=== PATIENT | female | born 1975 | race Caucasian/White ===

== ENCOUNTER 2021-06-26 15:17 | Emergency (ER) | payer OTHER, MEDICAID ==
[~2021-06-26] VITALS: Ht 167.6 cm; Wt 143.8 kg
--- NOTE | ~2021-06-26 | EMS ---
[facility] [address] [place] [address] EMS Patient Care Report Name: NAHUN REED Room: [facility]#: [id number] Admission: 06/26/21 Attend Phys: Discharge: 06/27/21 Date of : 75 Report #: [id number] THIS REPORT FOR: //name// Report Transmitted: 06/27/2021 13:39 EMS Care Summary [employer] [facility] Incident [phone] @ 06/26/2021 14:22 Incident Location [address] [place] [id number] Patient NAHUN REED Female, 46 Years 1975 Patient Address [address] [facility] [address] [place] [id number] Patient History Epilepsy,Hypertension (HTN), Patient Allergies Sulfa,Keppra, Patient Medications Trazodone, Hydroxyzine, Tegretol, Bystolic, Sertraline, Gabapentin, Topiramate, Potassium, Chief Complaint SI pill ingestion Disposition Transported No Lights/[place] Dispatch Reason No Other Appropriate Choice Transported To [facility] Narrative Medic 1 was dispatched for an overdose, [employer] on scene, scene is secured. Medic 1 arrived on scene and made contact with [employer]. [employer] advised the pt. had ingested 15 (fifteen) oxytocin 5 mg each. Pt. contact was made, pt. is a 46 y/o female, [address] [place] [address] EMS Patient Care Report Name: NAHUN REED Room: [facility]#: [id number] Admission: 06/26/21 Attend Phys: Discharge: 06/27/21 Date of : 75 Report #: [id number] sitting upright on the bed, AOx4 with a GCS of 15. C/C SI attempt, pt. stated " I want to and go be with my father." V/S obtained. 4 Lead ECG was obtained, Sinus Bradycardia at a rate of 48 bpm. Pt. stated to the crew that she was feeling sleepy, with no other C/C or injuries. Pt. was transferred to the cot and secured. Pt. was loaded into the ambulance and secured. V/S obtained and monitored throughout the transport. A successful saline lock was obtained, 22GA to right AC with a 10cc NS flush, IV is patent and flows with no obstructions and is secured. 12 Lead ECG was obtained, Sinus Bradycardia with no ectopy noted. Pt.'s HR remained in the lower 40 bpm. Pt. was administered 0.5 of Narcan IVP with a 10cc NS flush for counter action of medication ingested and to attempt to increase HR. In route, pt.'s HR had risen to 56 bpm and remained throughout transport. Receiving facility was contacted and report was given. Arrived at receiving facility, pt. was assigned to Bed #4, and report was given to receiving nurse. Signatures obtained by pt. and receiving nurse. Medic 1 returned to service. Initial Vitals @14:30P: 58,BP: 146/113,SpO2: 97, @14:31P: 48,SpO2: 81,[place] Suspected: false @14:44P: 48, @14:42R: 20,BP: 132/68,GCS: 15,Glucose: 111,Revised Trauma: 12, @15:03P: 48,R: 16,BP: 129/83,GCS: 15,SpO2: 99,Revised Trauma: 12,[place] Suspected: false @14:54P: 53,R: 16,BP: 107/86,GCS: 15,SpO2: 97,Revised Trauma: 12,[place] Suspected: false Impression Suicide attempt Procedures @14:53 IV Therapy - Normal Saline (.9% NaCl) 10cc (22 ga) Site: Antecubital-Right Response: UnchangedSucceeded @14:54 Naloxone - 0.5 Milligrams (mg) - Intranasal Response: Unchanged @14:44 12-Lead ECG Timeline 14:17,Call Received 14:22,Dispatched 14:22,En Route 14:25,At Patient 14:25,On Scene 14:30,BP: 146/113 M,PULSE: 58,RR: R,SPO2: 97 Ox,ETCO2: ,BG: ,PAIN: ,GCS: , 14:31,BP: / M,PULSE: 48,RR: R,SPO2: 81 Ox,ETCO2: ,BG: ,PAIN: ,GCS: , [facility] [address] [place] [address] EMS Patient Care Report Name: NAHUN REED Room: [facility] JERMAINE Rojas#: [id number] Admission: 06/26/21 Attend Phys: Discharge: 06/27/21 Date of : 75 Report #: [id number] 14:42,BP: 132/68 M,PULSE: ,RR: 20 R,SPO2: Ox,ETCO2: ,B,PAIN: ,GCS: 15, 14:44,12-Lead ECG, 14:44,BP: / M,PULSE: 48,RR: R,SPO2: Ox,ETCO2: ,BG: ,PAIN: ,GCS: , 14:53,IV Therapy - Normal Saline (.9% NaCl) 10cc 22 ga Site: Antecubital-Right,Response: UnchangedSucceeded, 14:54,BP: 107/86 M,PULSE: 53,RR: 16 R,SPO2: 97 Ox,ETCO2: ,BG: ,PAIN: ,GCS: 15, 14:54,Naloxone - 0.5 Milligrams (mg) - Intranasal,Response: Unchanged 14:56,Depart Scene 15:03,BP: 129/83 M,PULSE: 48,RR: 16 R,SPO2: 99 Ox,ETCO2: ,BG: ,PAIN: ,GCS: 15, 15:13,At Destination 15:53,Call Closed Disclaimer v1.1 Copyright 2021 [employer] This EMS Care Summary contains data elements from the applicable legal record (which may be displayed differently). It is designed to provide pertinent information for the following purposes: continuity of care, clinical quality, and state data reporting. The complete legal record is available to ED staff and administrators of the receiving hospital in [employer]'s Patient Tracker. All data is provided "as is."
[~2021-06-26 15:17] MED LIST: ALPRAZOLAM 0.50.5 M1; AMLODIPINE BESYL5 MG; AMOXICILLIN 50500 MG PO; BACLOFEN 10MG T10 M1 PO; BACLOFEN20 MG; CLARITIN10 MG PO; COUMADIN6 MG PO; COUMADIN7.5 MG PO; DESYREL300 MG; GABITRIL12 MG PO; HYDROXYZINE HCL25 M1 PO; KEFLEX500 MG PO; KLOR-CON 1010 MEQ PO; NABUMETONE 750750 M1 PO; NEURONTIN 300300 M1 PO; NEXIUM40 MG PO; NORCO 10-325 T1 EACH PO; ONFI20 MG PO; PROMETHAZINE HC25 M1 PO; PROMS25 WY RECTAL; TEGRETOL PO; TEGRETOL100 MG/5 M; TOPAMAX 100 MG100 MG PO; TRAZODONE HCL50 MG PO; VICOPROFEN 2001 EACH PO; ZANAFLEX4 M1 PO; ZANTAC; ZOFRAN ODT4 MG PO; ZOLOFT PO; [UNRECOGNIZED DRUG - OTHER]
[2021-06-26 15:41] LABS: URINE BILIRUBIN NEGATIVE (Negative); URINE BLOOD NEGATIVE (Negative); URINE CLARITY CLEAR; URINE COLOR YELLOW; URINE GLUCOSE-RANDOM NEGATIVE (Negative); URINE KETONES NEGATIVE (Negative); URINE LEUKOCYTES-REFLEX NEGATIVE (Negative); URINE NITRITE-REFLEX NEGATIVE (Negative); URINE PROTEIN NEGATIVE (Negative); URINE SPECIFIC GRAVITY 1.025 (1.005-1.030); URINE UROBILINOGEN 0.2 E.U./dl (0.2-1.0)
[2021-06-26 15:47] LABS: AMP/METHAMP Negative (Negative); BARBITURATES Negative (Negative); BENZODIAZEPINES POSITIVE (Negative); COCAINE Negative (Negative); METHADONE Negative (Negative); OPIATES POSITIVE (Negative); PCP Negative (Negative); THC Negative (Negative)
[2021-06-26 16:06] LABS: ABSOLUTE EOSINOPHILS 0.1 thou/uL (0.0-0.7); ABSOLUTE LYMPHOCYTES 3.6 thou/uL (0.8-5.3); ABSOLUTE MONOCYTES 0.4 thou/uL (0.0-1.2); ABSOLUTE NEUTROPHILS 2.5 thou/uL (1.6-8.1); BASOPHILS 0.7 %; HEMATOCRIT 37.3 % (37.0-47.0); HEMOGLOBIN 12.5 gm/dL (12.0-15.0); LYMPHOCYTES 53.9 %; MCH 30.6 pg (26.0-34.0); MCHC 33.5 g/dL (28.0-37.0); MCV 91.6 fL (80.0-100.0); MONOCYTES 5.5 %; MPV 8.2 fl. (7.2-11.1); NUCLEATED RBCS 0 /100WBC; PLATELET COUNT* 301 thou/uL (150-400); POLYS 37.9 %; RBC 4.07 mil/uL (4.20-5.00); RDW-CV 12.8 % (10.5-14.5); WBC 6.7 thou/uL (4.0-11.0)
[2021-06-26 16:12] LABS: CALCIUM 7.9 mg/dL (8.5-10.1); CREATININE 0.7 mg/dL (0.6-1.3); POTASSIUM 3.9 mmol/L (3.5-5.1)
[2021-06-26 16:17] LABS: ALBUMIN 3.5 g/dL (3.4-5.0); TOTAL BILIRUBIN 0.3 mg/dL (<0.1-1.0); TOTAL PROTEIN 7.2 g/dL (6.4-8.2)
[2021-06-26 16:35] LABS: ACETAMINOPHEN 5 ug/mL (10-30); SALICYLATE 4.5 mg/dL (2.8-20.0)
[2021-06-26 16:47] LABS: ALCOHOL < 10 mg/dL (<10)
[2021-06-27 06:04] VITALS: BP 145/71
--- NOTE | 2021-06-27 11:06 | EKG ---
[place] [address] ELECTROCARDIOGRAM REPORT Name: NAHUN REED Room: [facility]#: [id number] Admission: 06/26/21 Attend Phys: Discharge: 06/27/21 Date of : 75 Date of Service: 06/26/21 1542 Report #: [id number] THIS REPORT FOR: //name// [facility] ED Test Date: 2021-06-26 Test Time: 15:42:47 Pat Name: NAHUN REED Department: Room: Gender: [employer]: [facility] : 1975 Requested By: Maxime Otto Order Number: [id number] MD: Damian Leon Measurements Intervals [place] Rate: 47 P: 38 TN: 171 QRS: 26 QRSD: 120 T: 28 QT: 474 QTc: 419 Interpretive Statements Sinus bradycardia Nonspecific intraventricular conduction delay Compared to ECG 09/12/2009 20:03:47 Intraventricular conduction delay now present Sinus rate has decreased Electronically Signed On 06-27-2021 11:06:10 [employer] WORK[employer] by Damian Leon [email or web address] <ELECTRONICALLY SIGNED> By: Damian Leon MD, [facility] 06/27/21 1106 1542 1542 Damian Leon MD, [facility] /EPI
== END 2021-06-27 07:21 | disposition home or self-care (01) ==
LOC: M.ERS 15:17
PROVIDERS: Family Medicine
DX: T40.2X1A Poisoning by other opioids, accidental (unintentional), initial encounter (principal); Z20.822 Contact with and (suspected) exposure to COVID-19; R45.851 Suicidal ideations; G40.909 Epilepsy, unspecified, not intractable, without status epilepticus; F41.9 Anxiety disorder, unspecified; Z98.890 Other specified postprocedural states; Z79.899 Other long term (current) drug therapy; Z88.8 Allergy status to other drugs, medicaments and biological substances; Z88.2 Allergy status to sulfonamides; Y92.89 Other specified places as the place of occurrence of the external cause